=== PATIENT | male | born 1990 | race Caucasian/White ===

== ENCOUNTER 2018-09-02 14:35 | Emergency (ER) | payer OTHER ==
[2018-09-02 14:57] VITALS: BP 145/95; PULSE 98; RESP 16; TEMP 99; O2SAT 99
--- NOTE | 2018-09-02 15:38 | ED PDOC ---
HPI: Skin/Bite Injury Time Seen by Provider: 09/02/18 15:06 Chief Complaint (Nursing): Abnormal Skin Integrity Chief Complaint (Provider): Abscess History Per: Patient History/Exam Limitations: no limitations Onset/Duration Of Symptoms: Other (x1 week) Current Symptoms Are (Timing): Still Present Additional Complaint(s): 28 year old male presents to the ED complaining of a swollen and tender area to the left upper back for 1 week. Denies fever or chills. No medications were taken at home. PMD: none Past Medical History Reviewed: Historical Data, Nursing Documentation, Vital Signs Vital Signs: Last Vital Signs Temp 99.0 F 09/02/18 14:52 Pulse 98 H 09/02/18 14:52 Resp 16 09/02/18 14:52 BP 145/95 H 09/02/18 14:52 Pulse Ox 99 09/02/18 14:52 - Medical History PMH: No Chronic Diseases - Surgical History Surgical History: No Surg Hx - Family History Family History: States: Unknown Family Hx - Social History Current smoker - smoking cessation education provided: No Alcohol: None Drugs: Denies - Home Medications Home Medications: Ambulatory Orders Medication Instructions Recorded Famotidine [Pepcid] 20 mg PO BID #20 tab 08/31/16 Naproxen [Naprosyn] 500 mg PO BID PRN #15 tablet 08/31/16 Clindamycin [Cleocin] 300 mg PO QID #40 cap 09/02/18 - Allergies Allergies/Adverse Reactions: Allergies Allergy/AdvReac Type Severity Reaction Status Date / Time No Known Allergies Allergy Verified 09/02/18 14:51 Review of Systems ROS Statement: Except As Marked, All Systems Reviewed And Found Negative Constitutional: Negative for: Fever, Chills Skin: Positive for: Other (Swelling and tenderness to left upper back) Physical Exam - Reviewed Nursing Documentation Reviewed: Yes Vital Signs Reviewed: Yes - Physical Exam Appears: Positive for: Non-toxic, No Acute Distress Head Exam: Positive for: ATRAUMATIC, NORMOCEPHALIC Skin: Positive for: Normal Color, Warm, Dry Eye Exam: Positive for: Normal appearance Neck: Positive for: Normal, Painless ROM Cardiovascular/Chest: Positive for: Regular Rate, Rhythm. Negative for: Murmur Respiratory: Positive for: Normal Breath Sounds. Negative for: Wheezing, Respiratory Distress Extremity: Positive for: Normal ROM Neurologic/Psych: Positive for: Alert, Oriented. Negative for: Motor/Sensory Deficits Comments: 6cm by 3cm indurated abscess to the left upper back with no surrounding erythema - ECG O2 Sat by Pulse Oximetry: 99 (RA) Pulse Ox Interpretation: Normal Medical Decision Making Medical Decision Making: Initial Impression: Abscess Initial Plan: Scribe Attestation: Documented by Sher Watson acting as a scribe for Claire ROSE. Provider Scribe Attestation: All medical record entries made by the Scribe were at my direction and personally dictated by me. I have reviewed the chart and agree that the record accurately reflects my personal performance of the history, physical exam, medical decision making, and the department course for this patient. I have also personally directed, reviewed, and agree with the discharge instructions and disposition. Disposition - Clinical Impression Clinical Impression: Abscess - Patient ED Disposition Is Patient to be Admitted: No Counseled Patient/Family Regarding: Diagnosis, Need For Followup, Rx Given - Disposition Referrals: [facility] [Outside] Disposition: Routine/Home Disposition Time: 15:32 Condition: GOOD Prescriptions: Clindamycin [Cleocin] 300 mg PO QID #40 cap Instructions: Skin Abscess Forms: [employer] (Yakut)
== END 2018-09-02 16:01 | disposition home or self-care (01) ==
LOC: H.ER 14:35
DX: L02.212 Cutaneous abscess of back [any part, except buttock and flank] (principal)

== ENCOUNTER 2018-09-17 14:50 | Emergency (ER) | payer OTHER ==
[2018-09-17] MEDS ORDERED: Tdap Vaccine 0.5 ml Vial (10-64 yrs) IM ONE ×2 (15:39→17:58)
--- NOTE | 2018-09-17 16:02 | ED PDOC ---
HPI: Skin/Bite Injury Time Seen by Provider: 09/17/18 15:08 Chief Complaint (Nursing): Abnormal Skin Integrity Chief Complaint (Provider): Abnormal Skin Integrity History Per: Patient History/Exam Limitations: no limitations Additional Complaint(s): Patient complains of a painful mass to the left mid back, onset x4 weeks. Patient was seen here x3 weeks ago and was given a Rx for clindamycin which he completed yesterday. He was instructed to return to the ED when the abscess felt soft so that it could be drained, which prompted his visit today. Otherwise: (-) drainage, (-) fever, (-) chills. No other complaints at present. 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 - Family History Family History: States: Unknown Family Hx - Immunization History Hx Tetanus Toxoid Vaccination: No - Home Medications Home Medications: Ambulatory Orders Medication Instructions Recorded Famotidine [Pepcid] 20 mg PO BID #20 tab 08/31/16 Naproxen [Naprosyn] 500 mg PO BID PRN #15 tablet 08/31/16 RX: Clindamycin [Cleocin] 300 mg PO QID #40 cap 09/02/18 Acetaminophen [Acetaminophen 8 650 mg PO Q8 PRN #21 tablet.er 09/17/18 Hour] Amoxicillin/Clavulanate [Augmentin 1 tab PO BID #14 tab 09/17/18 875 MG-125 MG] RX: Ibuprofen [Motrin Tab] 800 mg PO Q8 PRN #21 tab 09/17/18 - Allergies Allergies/Adverse Reactions: Allergies Allergy/AdvReac Type Severity Reaction Status Date / Time No Known Allergies Allergy Verified 09/17/18 14:56 Review of Systems ROS Statement: Except As Marked, All Systems Reviewed And Found Negative Constitutional: Negative for: Fever, Chills Skin: Positive for: Other (abcsess to the back; no drainage) Physical Exam - Reviewed Nursing Documentation Reviewed: Yes Vital Signs Reviewed: Yes - Physical Exam Comments: GENERAL APPEARANCE: Patient is awake, alert, oriented x 3, in no acute distress, comfortable. Skin: warm and dry, (+) left parathoracic spine ~10cmx 5cm fluctuant abscess with overlying erythema (+) tenderness, (-) surrounding cellulitis Pulmonary: lungs clear to auscultation, no rhonchi, no wheezing, no rales. Cardiac: regular rate and rhythm Abdomen: Soft, nontender Back: (-) midline tenderness Extremities: no deformity, full range of motion Neuro: Mental status as above. Gait: steady. Speech: clear. - Laboratory Results Result Diagrams: 09/17/18 17:15 09/17/18 16:20 - ECG O2 Sat by Pulse Oximetry: 98 (RA) Pulse Ox Interpretation: Normal Medical Decision Making Medical Decision Making: Initial Time: 15:40 Initial Impression: Abscess of back Initial Plan: --Consult to general surgery --CMP --CBC with differential --Adacel IM --Wound Culture --Saline Lock 16:15 Sirisha STRONG spoke with surgical technologist Dr. Valverde, who is agreeable to evaluation to ER. 16:30 resident care technician at bedside. 1715 I&D performed by surgical technologist Zoe Valverde. See consult note. Recommends treatment with Augmentin PO. Advised patient to remove packing tomorrow himself. Patient educated on wound care. Patient to follow up in office with Dr Villafuerte. 1745 Patient reporting nausea at this time. Zofran ODT ordered. Labs reviewed and grossly unremarkable. No leukocytosis. 1820 On re-evaluation, patient reports improvement of symptoms. On exam, patient remains AAOx3, in no acute distress. Lungs clear to auscultation, cardiac RRR, repeat neuro exam shows no focal findings. Vitals stable. Lab/Diagnostic results d/w the patient in great detail. Diagnosis of abscess of back d/w the patient. Based on history, exam and diagnostic results, plan will be for outpatient follow up with Dr Villafuerte. Patient instructed to follow-up with pmd / referral provided / the clinic in 1- 2 days without fail. Advised to take medication as prescribed. Return to the emergency room at any time for any new or worsening symptoms. Patient states he fully agrees with and understands discharge instructions. States that he agrees with the plan and disposition. Verbalized and repeated discharge instructions and plan. I have given the patient opportunity to ask any additional questions. -------- Scribe Attestation: Documented by Akshat Brannon, acting as a scribe for Montserrat Patel Provider Scribe Attestation: All medical record entries made by the Scribe were at my direction and person ally dictated by me. I have reviewed the chart and agree that the record accurately reflects my personal performance of the history, physical exam, medical decision making, and the department course for this patient. I have also personally directed, reviewed, and agree with the discharge instructions and disposition. Disposition - Clinical Impression Clinical Impression: Abscess of back - Patient ED Disposition Is Patient to be Admitted: No Counseled Patient/Family Regarding: Studies Performed, Diagnosis, Need For Followup, Rx Given - Disposition Referrals: Elliott Villafuerte MD [Staff Provider] - Disposition: Routine/Home Disposition Time: 18:20 Condition: STABLE Additional Instructions: REMOVE PACKING TOMORROW. TAKE PRESCRIBED ANTIBIOTICS UNTIL COMPLETE. KEEP WOUND CLEAN AND DRY. CLEAN WOUND SITE TWICE DAILY. The emergency medical care you received today was directed at your acute symptoms. If you were prescribed any medication, please fill it and take as directed. It may take several days for your symptoms to resolve. Return to the Emergency Department if your symptoms worsen, do not improve, or if you have any other problems. Please contact your doctor in 2 days for re-evaluation and follow up / or call one of the physicians/clinics you have been referred to that are listed on the Patient Visit Information form that is included in your discharge packet. Bring any paperwork you were given at discharge with you along with any medications you are taking to your follow up visit. Our treatment cannot replace ongoing medical care by a primary care provider (PCP) outside of the emergency department. Prescriptions: Acetaminophen [Acetaminophen 8 Hour] 650 mg PO Q8 PRN #21 tablet.er PRN Reason: Pain, Moderate (4-7) Amoxicillin/Clavulanate [Augmentin 875 MG-125 MG] 1 tab PO BID #14 tab RX: Ibuprofen [Motrin Tab] 800 mg PO Q8 PRN #21 tab PRN Reason: Pain, Moderate (4-7) Instructions: Boil, Abscess Incision and Drainage (DC) Forms: [employer] (Namibian) Print Language: VIETNAMESE - POA Present On Arrival: None Results - Lab Results Lab Results: 09/17/18 09/17/18 17:15 16:20 WBC 10.8 RBC 4.97 Hgb 13.3 Hct 40.9 MCV 82.3 MCH 26.8 L MCHC 32.6 L RDW 14.5 Plt Count 319 MPV 8.0 Neut % (Auto) 68.7 Lymph % (Auto) 19.9 L [place] % (Auto) 8.3 Eos % (Auto) 2.6 Baso % (Auto) 0.5 Neut # (Auto) 7.4 H Lymph # (Auto) 2.2 [place] # (Auto) 0.9 H Eos # (Auto) 0.3 Baso # (Auto) 0.1 Sodium 142 Potassium 4.3 Chloride 105 Carbon Dioxide 28 Anion Gap 13 BUN 23 H Creatinine 0.8 Est GFR ( Amer) > 60 Est GFR (Non-Af Amer) > 60 Random Glucose 96 Calcium 9.6
[2018-09-17] MEDS ORDERED: Lidocaine 2% w Epi 1:100,000 Inj IJ ONE ×2 (16:38→18:12)
[2018-09-17] MEDS ORDERED: Povidone Iodine Topical 10% Sol ONE (16:47)
[2018-09-17 16:59] LABS: BASO # 0.1 K/uL (0.0-0.2); BASO % 0.5 % (0.0-2.0); EOS # 0.3 K/uL (0.0-0.7); EOS % 2.6 % (0.0-4.0); HEMOGLOBIN 13.3 g/dL (12.0-18.0); LYMPH # 2.2 K/uL (1.0-4.3); LYMPH % 19.9 % (20.0-40.0); MEAN CELL VOLUME 82.3 fl (80.0-94.0); MEAN CORPUSCULAR HEMOGLOBIN 26.8 pg (27.0-31.0); MEAN CORPUSCULAR HGB CONC 32.6 g/dL (33.0-37.0); MONO # 0.9 K/uL (0.0-0.8); MONO % 8.3 % (0.0-10.0); NEUT # 7.4 K/uL (1.8-7.0); NEUT % 68.7 % (50.0-75.0); RBC 4.97 Mil/uL (4.40-5.90); RED CELL DISTRIBUTION WIDTH 14.5 % (11.5-14.5); WHITE BLOOD COUNT 10.8 K/uL (4.8-10.8)
[2018-09-17 17:13] LABS: BLOOD UREA NITROGEN 23 mg/dl (9-20); CALCIUM 9.6 mg/dL (8.4-10.2); GFR NON-AFRICAN AMERICAN > 60
--- NOTE | 2018-09-17 17:41 | CP.PCM.CON ---
History of Present Illness - History of Present Illness History of Present Illness: Surgery: Dr. Villafuerte CC: Back Abscess HPI: 28M w. no pmh presents with back abscess. He initially presented to ED w. abscess 3 weeks ago. Per pt, the abscess was not ready to be drained at that time and he was sent home with 10 day course of clindamycin which he completed. He returns today with large fluctuant abscess that is ready for drainage. The pt states that he has pain over the area when pressure is applied. He states that h e has not noticed any drainage. He denies F/C. No N/V/D. PMH: None PSH: removal of hemangioma Meds: none NKDA Social: No ETOH/tobacco/drugs Fhx: Non-contributory Review of Systems - Review of Systems All systems: reviewed and no additional remarkable complaints except (HPI) Past Patient History - Infectious Disease Hx of Infectious Diseases: None - Past Medical History & Family History Past Medical History?: Yes - Past Social History Smoking Status: Never Smoked - MUSCULOSKELETAL/RHEUMATOLOGICAL Hx Falls: No - PSYCHIATRIC Hx Substance Use: No - SURGICAL HISTORY Hx Surgeries: Yes (cyst removal from left side head) - ANESTHESIA Hx Anesthesia: Yes Hx Anesthesia Reactions: No Meds Allergies/Adverse Reactions: Allergies Allergy/AdvReac Type Severity Reaction Status Date / Time No Known Allergies Allergy Verified 09/17/18 14:56 Physical Exam - Constitutional Appears: Non-toxic, No Acute Distress - Head Exam Head Exam: ATRAUMATIC, NORMOCEPHALIC - Eye Exam Eye Exam: EOMI - ENT Exam ENT Exam: Mucous Membranes Moist - Neck Exam Neck exam: Positive for: Full Rom - Respiratory Exam Respiratory Exam: NORMAL BREATHING PATTERN. absent: Accessory Muscle Use, Respiratory Distress - Cardiovascular Exam Cardiovascular Exam: REGULAR RHYTHM - GI/Abdominal Exam GI & Abdominal Exam: Soft. absent: Distended, Firm, Guarding, Rebound, Rigid, Tenderness - Extremities Exam Extremities exam: Negative for: calf tenderness, pedal edema - Back Exam Additional comments: L sided mid-thoracic back abscess ~ 10x5cm, fluctuant, slight overlying e rythema, mildly tender to palpation Results - Vital Signs Recent Vital Signs: Last Vital Signs Temp 99.3 F 09/17/18 14:56 Pulse 98 H 09/17/18 14:56 Resp 20 09/17/18 14:56 BP 124/81 09/17/18 14:56 Pulse Ox 98 09/17/18 16:33 - Labs Result Diagrams: 09/17/18 17:15 09/17/18 16:20 Labs: Laboratory Results - last 24 hr 09/17/18 09/17/18 16:20 17:15 WBC 10.8 RBC 4.97 Hgb 13.3 Hct 40.9 MCV 82.3 MCH 26.8 L MCHC 32.6 L RDW 14.5 Plt Count 319 MPV 8.0 Neut % (Auto) 68.7 Lymph % (Auto) 19.9 L [place] % (Auto) 8.3 Eos % (Auto) 2.6 Baso % (Auto) 0.5 Neut # (Auto) 7.4 H Lymph # (Auto) 2.2 [place] # (Auto) 0.9 H Eos # (Auto) 0.3 Baso # (Auto) 0.1 Sodium 142 Potassium 4.3 Chloride 105 Carbon Dioxide 28 Anion Gap 13 BUN 23 H Creatinine 0.8 Est GFR ( Amer) > 60 Est GFR (Non-Af Amer) > 60 Random Glucose 96 Calcium 9.6 Assessment & Plan - Assessment and Plan (Free Text) Assessment: 28M w. back abscess -I&D at bedside, consent in chart, risks/benefits d/w pt -wound was packed, pt instructed to remove packing tomorrow, can than dress woun d with 4x4 -Augmentin for 1 week -Ibuprofen/Tylenol for pain -F/U with Dr. Villafuerte in 1 week -d/w attending [employer] PGY4 - Incision & Drainage Of Abscess Anesthesia: Lidocaine 2% (20cc), With Epi Prep Used: Betadine Procedure: Incised W/Scalpel Blade#: (11), Drained Pus (~50cc), Irrigated Cavity W/Saline (500cc), Probed To Break Up Loculations, Packed W/Gauze, Cultures Obtained And Sent To Lab
[2018-09-17] MEDS ORDERED: Amoxicillin-Clav 875-125 mg Tab PO STA (17:42)
[2018-09-17] MEDS ORDERED: Amoxicillin-Clav 875-125 mg Tab PO ONE (18:11)
[2018-09-17 19:18] VITALS: BP 128/78; PULSE 78; RESP 18; TEMP 98.2
[2018-09-18 22:33] VITALS: O2SAT 98
== END 2018-09-17 19:18 | disposition home or self-care (01) ==
LOC: H.ER 14:50
DX: L02.212 Cutaneous abscess of back [any part, except buttock and flank] (principal); B96.1 Klebsiella pneumoniae [K. pneumoniae] as the cause of diseases classified elsewhere